=== PATIENT | male | born 1985 | race African-American/Black ===

== ENCOUNTER 2016-10-06 15:33 | Emergency (ER) | payer MEDICAID ==
[2016-10-06 17:37] LABS: CLARITY URINE CLEAR (CLEAR); COLOR URINE YELLOW (YELLOW); GLUCOSE URINE NEGATIVE (NEGATIVE); KETONES URINE NEGATIVE (NEGATIVE); LEUKOCYTE ESTERASE URINE NEGATIVE (NEGATIVE); NITRITE URINE NEGATIVE (NEGATIVE); OCCULT BLOOD URINE NEGATIVE (NEGATIVE); PROTEIN URINE NEGATIVE (NEGATIVE); SPECIFIC GRAVITY URINE 1.021 (1.005-1.030); UROBILINOGEN URINE 0.2 E.U./dL (0.2-1.0)
[2016-10-06] MEDS ORDERED: CEFTRIAXONE SODIUM 250 MG/VIAL IM ONE (21:00)
[2016-10-06] MEDS ORDERED: AZITHROMYCIN 500 MG TABLET PO ONE (21:00)
[2016-10-06] MEDS ORDERED: LIDOCAINE HCL 1% 20ML VIAL (Pyxis) INJ MC ONE (21:45)
[2016-10-06 21:49] VITALS: BP 125/80
== END 2016-10-06 22:20 | disposition home or self-care (01) ==
LOC: ER 20:54
DX: A64 Unspecified sexually transmitted disease (principal); F17.200 Nicotine dependence, unspecified, uncomplicated
CPT/HCPCS: 81003; 96372; 99283; J0696; J3490